=== PATIENT | male | born 1985 | race Caucasian/White ===

== ENCOUNTER 2016-10-20 12:43 | Emergency (ER) | payer SELFPAY ==
--- NOTE | 2016-10-20 13:33 | RAD ---
INDICATION: Left shoulder pain COMPARISON: None. TECHNIQUE: 4 views of the left shoulder were obtained. FINDINGS: The adequately corticated bones are in normal alignment. Joint spaces appear maintained. No fracture, dislocation or focal bony abnormality is seen. IMPRESSION: Normal radiograph of the left shoulder. If the patient's symptoms persist, follow-up imaging is recommended.
[2016-10-20] MEDS ORDERED: Ketorolac INJ* 60 MG/2 ML VIAL IM ONE (13:49)
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
[2016-10-20 14:12] VITALS: BP 130/4
== END 2016-10-20 14:10 | disposition home or self-care (01) ==
LOC: ED 12:43
DX: M25.512 Pain in left shoulder (principal); S40.812A Abrasion of left upper arm, initial encounter; S80.212A Abrasion, left knee, initial encounter; X58.XXXA Exposure to other specified factors, initial encounter; Y92.149 Unspecified place in prison as the place of occurrence of the external cause; Y99.0 Civilian activity done for income or pay
CPT/HCPCS: 99282; J1885